=== PATIENT | female | born 1960 | race Caucasian/White ===

== ENCOUNTER 2021-06-09 14:20 | Outpatient (CLI) | payer BC | END 2021-06-09 14:21 | disposition home or self-care (01) | LOC: CSHULT 14:20 | PROVIDERS: ATTEND Otolaryngology | DX: E04.1 Nontoxic single thyroid nodule (principal) | CPT/HCPCS: 76536 ==

== ENCOUNTER 2024-09-26 08:36 | Outpatient (CLI) | payer BC | END 2024-09-26 08:37 | disposition home or self-care (01) | LOC: CSHULT 08:36 | PROVIDERS: ATTEND Physician Assistant Medical | DX: K20.0 Eosinophilic esophagitis (principal); R13.10 Dysphagia, unspecified; Z98.84 Bariatric surgery status; D64.9 Anemia, unspecified; K21.00 Gastro-esophageal reflux disease with esophagitis, without bleeding; E55.9 Vitamin D deficiency, unspecified; F10.10 Alcohol abuse, uncomplicated; F43.21 Adjustment disorder with depressed mood; Z12.11 Encounter for screening for malignant neoplasm of colon; K76.0 Fatty (change of) liver, not elsewhere classified; K80.20 Calculus of gallbladder without cholecystitis without obstruction | CPT/HCPCS: 76705 ==